=== PATIENT | female | born 1945 | race Caucasian/White ===

== ENCOUNTER → 2021-01-24 | Day surgery (SDC) | payer OTHER ==
[~2021-01-24] MED LIST: LABETALOL 20 MG/4ML SYRINGE IV ONE; LIDOCAINE 1% MPF 30 ML VIAL ONE; NA CHLORIDE 0.9% 1,000 ML ONE; propofoL 200 MG/20 ML VIAL IV ONE
--- NOTE | 2021-01-24 09:05 | ENDO RPT ---
[address], [address] COLONOSCOPY PROCEDURE REPORT EXAM DATE: 01/24/2021 PATIENT NAME: Zahraa Cristina MR #: [id number] BIRTHDATE: 1945 ATTENDING: Irvin Sarabia MD STATUS: outpatient DIRECT CARE WORKER: Aleena Thompson RN and Gaby Johnson CST INDICATIONS: The patient is a 75 yr old Female here for a colonoscopy due to colon cancer screening, colon cancer screening, and colon cancer screening PROCEDURE PERFORMED: Colonoscopy with hot biopsy polypectomy MEDICATIONS: Per Anesthesia. ESTIMATED BLOOD LOSS: None CONSENT: The patient understands the risks and benefits of the procedure and understands that these risks include, but are not limited to: sedation, allergic reaction, infection, perforation and/or bleeding. Alternative means of evaluation and treatment include, among others: physical exam, x-rays, and/or surgical intervention. The patient elects to proceed with this endoscopic procedure. DESCRIPTION OF PROCEDURE: During intra-op preparation period all mechanical medical equipment was checked for proper function. Hand hygiene and appropriate measures for infection prevention was taken. Procedure, possible complications, alternatives including, but not limited to possibility of bleeding, perforation, tear, infection, sepsis, need for surgery, need for blood transfusion, were explained to the patient. After the risks, benefits and alternatives of the procedure were thoroughly explained, Informed consent was verified, confirmed and timeout was successfully executed by the treatment team. The patient was placed in the left lateral position. A digital rectal exam was performed and revealed hemorrhoids. After appropriate level of anesthesia, the scope was passed. The EC-[id number] ([id number]) endoscope was introduced through the anus and advanced to the cecum, which was identified by transillumination from the light source, the appendix, and the ileocecal valve. Hot biospy done over ascendind colon [place] under direct visualization. No bleeding. The quality of the prep was good. The instrument was then slowly withdrawn as the colon was fully examined. Scope withdrawal time was . COLON FINDINGS: Moderate sized internal and external hemorrhoids were found. Diverticula was found throughout the entire examined colon. The opening was medium sized. Abnormal mucosa was found in the ascending colon near ileocecal valve mild inflammation, no ulceration, no bleeding, biopsy done. Retroflexed views revealed no abnormalities. The scope was then completely withdrawn from the patient and the procedure terminated. ADVERSE EVENTS: There were no complications. IMPRESSIONS: 1. Moderate sized internal and external hemorrhoids 2. Diverticula throughout the entire examined colon 3. Abnormal mucosa was found in the ascending colon 4. Mild colitis ascending colon, bx done RECOMMENDATIONS: 1. await biopsy results 2. follow-up: office 1 week(s) 3. no seeds in diet RECALL: for Colonoscopy. Irvin Sarabia MD eSigned: Irvin Sarabia MD 01/24/2021 9:04 AM cc: Dakota Zendejas M.D. CPT CODES: ICD9 CODES: PATIENT NAME: Zahraa Cristina MR#: [id number]
[2021-01-24 11:20] VITALS: O2SAT 100
[2021-01-24 11:21] VITALS: BP 112/70; TEMP 97.8
== END ==
LOC: OR 07:16
PROVIDERS: ATTEND Surgery
PROC: 0DBC8ZX Excision of Ileocecal Valve, Via Natural or Artificial Opening Endoscopic, Diagnostic (ICD-10-PCS; principal; 2021-01-24 08:30)
DX: Z12.11 Encounter for screening for malignant neoplasm of colon (principal); K64.4 Residual hemorrhoidal skin tags; K64.8 Other hemorrhoids; K57.30 Diverticulosis of large intestine without perforation or abscess without bleeding; K52.9 Noninfective gastroenteritis and colitis, unspecified
CPT/HCPCS: 45380; 82947; 88305; J2704; J7030